=== PATIENT | male | born 1980 | race Caucasian/White ===

== ENCOUNTER 2016-09-26 10:28 | Day surgery (SDC) | payer BC ==
[2016-09-25 13:15] VITALS: BMI 30.2
[~2016-09-26] VITALS: Ht 175.3 cm; Wt 80.2 kg
[2016-09-26] VITALS (12 sets, daily range): BP systolic 147–177; BP diastolic 78–96; PULSE 96–118; RESP 15–27; Ht 175.3 cm; Wt 80.2 kg
[2016-09-26] MEDS ORDERED: PANT20TA3 PO (11:57)
[2016-09-26] MEDS ORDERED: SMV40T PO (11:57)
[2016-09-26] MEDS ORDERED: METO10TA92 PO (11:57)
[2016-09-26] MEDS ORDERED: OXCA600T30 PO (11:57)
[2016-09-26] MEDS ORDERED: RISP2TAB PO (11:59)
[2016-09-26] MEDS ORDERED: BLVX50T PO (12:03)
[2016-09-26] MEDS ORDERED: NEOSTIGMINE 3 MG/3 ML SYRINGE ONE ×2 (12:32→13:42)
[2016-09-26] MEDS ORDERED: GLYCOPYRROLATE 0.4 MG INJ ONE ×2 (12:32→13:42)
[2016-09-26] MEDS ORDERED: LIDOCAINE 2% (SDV) 5 ML INJ ONE (12:32)
[2016-09-26] MEDS ORDERED: PROPOFOL 20 ML ONE (12:32)
[2016-09-26] MEDS ORDERED: MEPERIDINE 100 MG INJ ONE (12:32)
[2016-09-26] MEDS ORDERED: ROCURONIUM 50 MG INJ ONE (12:32)
[2016-09-26] MEDS ORDERED: SUCCINYLCHOLINE CHLORIDE 100 MG/5 ML SYG IV ONE (12:32)
[2016-09-26] MEDS ORDERED: CEFAZOLIN 1 GM INJ ONE (12:36)
[2016-09-26] MEDS ORDERED: BUPIVACAINE 0.25% (MPF) 30 ML INJ ONE (13:12)
[2016-09-26] MEDS ORDERED: BUPIVACAINE 0.25% (MPF) 30 ML INJ INJ ONE (13:51)
[2016-09-26] MEDS ORDERED: HYDROCODONE/APAP (5/325) TAB PO ONE (14:00)
--- NOTE | 2016-09-26 14:06 | OPR ---
DATE OF OPERATION: 09/26/2016 INDICATION: This is a 36-year-old male with symptomatic gallstones. He requests surgical resection of his gallbladder. Risks, alternatives, benefits, and personnel were discussed with the patient. The patient expressed understanding and consents to the operation. PREOPERATIVE DIAGNOSIS: Symptomatic gallstones. POSTOPERATIVE DIAGNOSIS: Symptomatic gallstones. OPERATION: Laparoscopic cholecystectomy. SURGEON: Ranjit Domínguez MD SPECIMENS: Gallbladder. COMPLICATIONS: None. ANESTHESIA: General. DESCRIPTION OF PROCEDURE: The patient was taken to the OR and prepped and draped in the usual steri le fashion. Surgical time out was performed. IV antibiotics were given. Infraumbilical incision w as made transversely with a 15 blade. Dissection cautery was carried down to the fascia which was o pened with a curved Castrejon scissors. An 0 Vicryl U-stitch was placed into the fascia. Balloon Susana trocar was introduced. Pneumoperitoneum was established. Midepigastric 12 mm optical trocar and r ight upper quadrant and right upper flank 5 mm optical trocars are placed under direct visualization . Upon initial inspection, there were some adhesions to the gallbladder which were taken down blunt ly. The cystic duct was identified. The critical view was established. The cystic duct and cystic artery are divided using a 35 mm [place] vascular load stapler. Additional clips were placed for r einforcement. The gallbladder was taken off the gallbladder bed. There was good hemostasis. Gallb ladder is retrieved using an EndoCatch bag. Ports were removed under direct visualization. An 0 Vi cryl U-stitch was tied down. Skin was closed using skin vanesa. Local anesthesia was injected. D ry dressings were applied. Dictated By: RANJIT DOMÍNGUEZ MD SB/NTS Conf#: [id number] DID#: [id number]
[2016-09-26] MEDS ORDERED: ONDANSETRON 4 MG INJ IV PRN (14:30)
[2016-09-26] MEDS ORDERED: FENTAnyl 50 MCG/ML VIAL IV PRN ×2 (14:30)
[2016-09-26] MEDS ORDERED: MEPERIDINE 25 MG INJ IV PRN (14:30)
[2016-09-26] MEDS ORDERED: LABETALOL HCL 20MG INJ IV PRN (14:30)
[2016-09-26] MEDS ORDERED: hydrALAzine 20 MG INJ IV PRN (14:30)
[2016-09-26] MEDS ORDERED: METOCLOPRAMIDE 10 MG INJ IV PRN (14:30)
[2016-09-26] MEDS ORDERED: MIDAZOLAM 1 MG/ML 2 ML INJ IV PRN (14:30)
[2016-09-26] MEDS ORDERED: EPHEDrine SULFATE 50 MG/5 ML SYG IV PRN (14:30)
[2016-09-26] MEDS ORDERED: HYDROmorphONE (0.2 MG/ML) 10ML SYG IV PRN ×2 (14:30)
[2016-09-26] MEDS ORDERED: morphine (1 MG/ML) 10ML SYRINGE IV PRN ×2 (14:30)
[2016-09-26] MEDS ORDERED: DIPHENHYDRAMINE 50 MG INJ IV PRN (14:30)
== END 2016-09-26 15:56 | disposition home or self-care (01) ==
LOC: SDS 10:28
PROVIDERS: ATTEND Surgery
DX: K80.10 Calculus of gallbladder with chronic cholecystitis without obstruction (principal); E78.5 Hyperlipidemia, unspecified
CPT/HCPCS: 47562; 88304; J0330; J0690; J1170; J2175; J2405; J2710; Z7512; Z7610